=== PATIENT | male | born 1980 | race Caucasian/White ===

== ENCOUNTER 2019-04-09 16:24 | Emergency (ER) | payer OTHER ==
--- NOTE | 2019-04-09 17:06 | PDOC ---
Rapid Medical Evaluation Time Seen by Provider: 04/09/19 16:32 Medical Evaluation: 04/09/19 17:03 I have performed a brief in-person evaluation of this patient. The patient presents with a chief complaint of: CP/SOB regardless of position but worse w/ sitting x 2 weeks. No diaphoresis, n/v, leg pain/swelling. No prior episode. No sig pmhx, non-smoker Pertinent physical exam findings:Stable w/ clear chest/lungs I have ordered the following:ekg/cxr/labs The patient will proceed to the ED for further evaluation Discharge Disposition - Diagnosis Chest pain Qualifiers: Chest pain type: chest pain on breathing Qualified Code(s): R07.1 - Chest pain on breathing - Referrals - Patient Instructions - Post Discharge Activity
[2019-04-09 17:07] VITALS: BMI 50.6
[2019-04-09 18:41] LABS: BASO % 0.8 % (0-2.0); EOS % 1.7 % (0-4.5); HEMATOCRIT 46.9 % (35.4-49); HEMOGLOBIN 16.4 GM/dL (11.7-16.9); LYMPH % 28.7 % (8-40); MCH 30.8 pg (25.7-33.7); MCHC 34.9 g/dl (32.0-35.9); MEAN CELL VOLUME 88.1 fl (80-96); MEAN PLT VOLUME 9.7 fl (7.5-11.1); MONO % 4.4 % (3.8-10.2); NEUT % 64.4 % (42.8-82.8); PLATELET COUNT 189 K/MM3 (134-434); RBC 5.32 M/mm3 (4.00-5.60); RDW 13.4 % (11.9-15.9); WHITE BLOOD COUNT 6.8 K/mm3 (4.0-10.0)
--- NOTE | 2019-04-09 18:42 | PDOC ---
Documentation entered by Abdulkadir Rajan SCRIBE, acting as scribe for Eden Martinez MD. Eden Martinez MD: This documentation has been prepared by the Satinder chu Joel, SCRIBE, under my direction and personally reviewed by me in its entirety. I confirm that the documentation accurately reflects all work, treatment, procedures, and medical decision making performed by me. Attending Attestation - Resident Resident Name: Lazarus Suh - ED Attending Attestation I have performed the following: I have examined & evaluated the patient, The case was reviewed & discussed with the resident, I agree w/resident's findings & plan, Exceptions are as noted - HPI HPI: 04/09/19 18:46 The patient is a 39 year old male with no significant PMH who presents to the emergency department for evaluation of chest pain over the past 2 weeks. He describes his chest pain as a diffuse tightness with tingling down his left arm that is worse when sitting, with associated nausea and lightheadedness. He also notes an episode of palpitations while sitting at work last week. He denies shortness of breath. He comes in today due to being concerned after his friend has a recent [place]. The patient denies headache and dizziness. Denies fever, chills, nausea, vomit, diarrhea and constipation. Denies dysuria, frequency, urgency and hematuria. Allergies: NKA Past surgical history: None reported. Social history: No reported cigarette, alcohol, or drug use. - Physicial Exam PE: 04/09/19 19:21 GENERAL: Awake, alert, and fully oriented, in no acute distress HEAD: No signs of trauma EYES: PERRLA, EOMI, sclera anicteric, conjunctiva clear ENT: Auricles normal inspection, hearing grossly normal, nares patent, oropharynx clear without exudates. Moist mucosa NECK: Normal ROM, supple, no lymphadenopathy, JVD, or masses LUNGS: Breath sounds equal, clear to auscultation bilaterally. No wheezes, and no crackles HEART: Regular rate and rhythm, normal S1 and S2, no murmurs, rubs or gallops ABDOMEN: Soft, nontender, normoactive bowel sounds. No guarding, no rebound. No masses EXTREMITIES: Normal range of motion, no edema. No clubbing or cyanosis. No cords, erythema, or tenderness NEUROLOGICAL: Cranial nerves II through XII grossly intact. Normal speech, normal gait SKIN: Warm, Dry, normal turgor, no rashes or lesions noted. - Medical Decision Making 04/09/19 18:38 pt recently had a friend from an [place] and he is concerned because for the psat 2 weeks he has experienced some left sided chest pain and left arm tingling PMH denies PSH denies Social history: no tobacco use,no etoh,single Family history no family history of early cardiac demise 04/09/19 19:29 negative cardiac workup with a negative troponin and EKG normal sinus rhythm with no evidence of any ischemiaor arrhythmia patient has had these intermittent symptoms over last 2 weeks and is being referred to a health coach for further workup
--- NOTE | 2019-04-09 18:44 | PDOC ---
History of Present Illness - General Chief Complaint: Chest Pain Stated Complaint: SOB/DIZZINESS Time Seen by Provider: 04/09/19 16:32 History Source: Patient Exam Limitations: No Limitations - History of Present Illness Initial Comments: 04/09/19 18:43 Robinson Benjamin is an otherwise healthy 39M presenting with chest pain. Patient reports 2 weeks of chest tightness that radiates down the left arm, chest tightness persists while in ED. Tightness worsens when patient is sitting , alleviates when standing or lying supine. Has had palpitations about a week ago, unprovoked, was working in office. Intermittent nausea and lightheadedness. Reports sweating only while eating, denies abd pain or heartburn. Of note, patient was working 2 jobs, one of which was nights, and was getting little sleep and not seeing family. Family reports to him that he has been short of breath after simple activities, but pt does not notice. Previous MD dx him with mild anxiety, no tx prescribed. Recent of friend of similar age from heart attack, prompted eval today. Past History - Past Medical History Allergies/Adverse Reactions: Allergies Allergy/AdvReac Type Severity Reaction Status Date / Time No Known Allergies Allergy Verified 04/09/19 17:04 COPD: No - Immunization History Immunization Up to Date: Yes - Suicide/Smoking/Psychosocial Hx Smoking History: Never smoked Information on smoking cessation initiated: No Hx Alcohol Use: No Drug/Substance Use Hx: No Review of Systems - Review of Systems Able to Perform ROS?: Yes Is the patient limited Bulgarian proficient: No Constitutional: No: Chills, Fever, Night Sweats, Weakness HEENTM: No: Blurred Vision, Hearing Loss, Throat Pain, Difficulty Swallowing Respiratory: Yes: See HPI, Shortness of Breath, SOB with Exertion, SOB at Rest. No: Cough, Orthopnea, Wheezing Cardiac (ROS): Yes: See HPI, Chest Pain, Lightheadedness, Palpitations (1 week ago), Chest Tightness. No: Edema, Syncope ABD/GI: Yes: Nausea. No: Abdominal Distended, Constipated, Diarrhea, Vomiting, Abdominal cramping : No: Burning, Dysuria, Discharge, Frequency, Flank Pain Musculoskeletal: No: Muscle Pain, Muscle Weakness Integumentary: No: Bruising, Erythema, Flushing Neurological: No: Headache, Numbness, Paresthesia, Weakness, Unsteady Gait Endocrine: Yes: Excessive Sweating (when eating) Hematologic/Lymphatic: No: See HPI *Physical Exam - Vital Signs Last Vital Signs Temp Pulse Resp BP Pulse Ox 97.8 F 70 16 127/77 98 04/09/19 17:04 04/09/19 17:04 04/09/19 17:04 04/09/19 17:04 04/09/19 17:04 - Physical Exam General Appearance: Yes: Nourished, Appropriately Dressed. No: Apparent Distress HEENT: positive: EOMI, MAURISIO, Normal Voice, Symmetrical, Hearing Grossly Normal. negative: Scleral Icterus (R), Scleral Icterus (L) Neck: positive: Trachea midline, Rigid, Supple. negative: Tender, Lymphadenopathy (R), Lymphadenopathy (L) Respiratory/Chest: positive: Chest Tender (TTP point under L nipple, non- radiating), Lungs Clear, Normal Breath Sounds, Respiratory Distress. negative: Accessory Muscle Use, Crackles, Rales, Rhonchi Cardiovascular: positive: Regular Rhythm, Regular Rate. negative: Edema, Murmur , Gallop/S3, Gallop/S4 Gastrointestinal/Abdominal: positive: Normal Bowel Sounds, Flat. negative: Tender, Soft, Organomegaly Musculoskeletal: positive: Normal Inspection Extremity: positive: Normal Capillary Refill, Normal Inspection, Normal Range of Motion. negative: Tender (No signs of injury to L arm, 5/5 strength, sensation intact to LT, grossly normal) Integumentary: positive: Normal Color, Dry, Warm Neurologic: positive: Fully Oriented, Normal Mood/Affect, Normal Response, Motor Strength 5/5 ED Treatment Course - LABORATORY CBC & Chemistry Diagram: 04/09/19 17:55 04/09/19 17:55 Medical Decision Making - Medical Decision Making 04/09/19 19:19 Robinson Benjamin is an otherwise healthy 39M presenting with chest pain. Given patient has no significant PMH, no cardiac history, no family history of cardiac disease, and is presenting with intermittent chest pain and palpitations , concern high for arrhythmia vs. MT vs. anxiety vs. musculoskeletal injury vs. costochondritis. Evaluation via CBC, CMP, cardiac profile, ECG. Trops returned negative, ECG grossly normal, CXR clear. Given chest pain to palpation, likely musculoskeletal, however, L arm tingling and palpitations is concerning for cardiac disease. Given pt is otherwise healthy, stable at this time, and has good medical literacy, will refer to PCP clinic and staffing rn. Explained importance of follow-up for cardiac eval to patient, will discharge home. *DC/Admit/Observation/Transfer Diagnosis at time of Disposition: Chest pain Qualifiers: Chest pain type: chest pain on breathing Qualified Code(s): R07.1 - Chest pain on breathing - Discharge Dispostion Disposition: HOME Condition at time of disposition: Good Decision to Admit order: No - Referrals Referrals: Romeo Danielle MD [Staff Physician] - Allen Britt MD [Staff Physician] - - Patient Instructions Printed Discharge Instructions: DI for Chest Pain, DI for Atypical Chest Pain Additional Instructions: Today you were evaluated for chest pain. As you mentioned, we were concerned for a heart attack. We evaluated your heart rhythm with an EKG, and checked your blood for problems with your electrolytes and signs of heart damage, and we did not find any abnormalities. We also performed a chest x-ray to look for heart or bone problems, and none were found. Your chest pain is likely in your muscles, or even your body's reaction to stress such as your work or the loss of a loved one. As we discussed, there is not an immediate, life-threatening problem that we have to fix right now. However, we are still concerned about your arm pain and palpitations, which could be signs of a heart problem that we cannot detect in the emergency room, or be a problem with your thyroid releasing too much hormones that excite your heart. Please follow-up with the doctors we referred you to, or if your insurance covers a doctor closer to you, please see a staffing rn of your choice in the next week to check out your chest pain. If you continue to have worsening chest pain, shortness of breath, headache, nausea , vomiting, or any other concerning symptoms, return to an emergency room immediately. - Post Discharge Activity
[2019-04-09] MEDS ORDERED: ASPIRIN COATED 81 MG TABLET.EC PO SCH (18:45)
[2019-04-09 18:54] VITALS: BP 124/79; PULSE 73; TEMP 98.6
[2019-04-09 19:01] LABS: ALBUMIN 4.2 g/dl (3.4-5.0); BILIRUBIN,TOTAL 0.4 mg/dL (0.2-1); BLOOD UREA NITROGEN 18.7 mg/dL (7-18); CALCIUM 9.2 mg/dL (8.5-10.1); CREATININE 1.2 mg/dL (0.55-1.3); TOT PROT 7.9 g/dl (6.4-8.2)
[2019-04-09] MEDS ORDERED: ASPIRIN 81 MG CHEWABLE TABLETS ONE (19:14)
--- NOTE | 2019-04-10 10:32 | EKG ---
Test Reason : Blood Pressure : / mmHG Vent. Rate : 062 BPM Atrial Rate : 062 BPM P-R Int : 178 ms QRS Dur : 114 ms QT Int : 408 ms P-R-T Axes : 050 069 042 degrees QTc Int : 414 ms NORMAL SINUS RHYTHM INCOMPLETE LEFT BUNDLE BRANCH BLOCK BORDERLINE ECG NO PREVIOUS ECGS AVAILABLE Confirmed by DEANNA JONES, CESILIA ([id number]) on 04/10/2019 10:31:57 AM Referred By: Confirmed By:CESILIA HUERTA MD
== END 2019-04-09 19:59 | disposition home or self-care (01) ==
LOC: JER 16:24
DX: R07.1 Chest pain on breathing (principal)
CPT/HCPCS: 36415; 71046-TC-FY; 80053; 82550; 84484; 85025; 93005; 93010; 99283-25

== ENCOUNTER 2019-10-08 08:47 | Emergency (ER) | payer OTHER ==
[2019-10-08 09:24] VITALS: BMI 28.2
[2019-10-08] MEDS ORDERED: MAG HYDROX/AL HYDROX/SIMETH 30 ML UNIT-DOSE CUP PO ONE (10:15)
[2019-10-08] MEDS ORDERED: MAG HYDROX/AL HYDROX/SIMETH 30 ML UNIT-DOSE CUP ONE (10:27)
[2019-10-08 10:43] LABS: BASO % 0.4 % (0-2.0); EOS % 1.4 % (0-4.5); HEMATOCRIT 45.8 % (35.4-49); HEMOGLOBIN 16.1 GM/dL (11.7-16.9); LYMPH % 19.2 % (8-40); MCH 30.9 pg (25.7-33.7); MCHC 35.2 g/dl (32.0-35.9); MEAN CELL VOLUME 87.5 fl (80-96); MEAN PLT VOLUME 8.7 fl (7.5-11.1); MONO % 7.1 % (3.8-10.2); NEUT % 71.9 % (42.8-82.8); PLATELET COUNT 160 K/MM3 (134-434); RBC 5.23 M/mm3 (4.00-5.60); RDW 13.5 % (11.9-15.9); WHITE BLOOD COUNT 5.1 K/mm3 (4.0-10.0)
--- NOTE | 2019-10-08 10:43 | PDOC ---
History of Present Illness - General Chief Complaint: Pain Stated Complaint: ABD. PAIN Time Seen by Provider: 10/08/19 09:49 History Source: Patient Exam Limitations: Clinical Condition - History of Present Illness Initial Comments: 10/08/19 10:37 Patient with no significant past medical history present with complaint of sudden onset of cramping left upper quadrant abdominal pain with tingling sensation going up left side of chest which lasted for 5 minutes and has been intermittent since yesterday. Patient reported had symptoms yesterday and went to [facility] emergency room and left yesterday due to waiting for too long. Reported that it was done for him in the emergency room yesterday. Patient reported feeling the symptom again this morning which lasted for 5 minutes and has resolved. Reported no symptoms now. Reported intermittent feeling of bubbling sensation in the abdomen. Denies nausea, vomiting, chest pain, shortness of breath, dizziness, fever, chills or sweats. Patient has not taken anything for symptoms. Patient reported last bowel movement this morning which was small and soft and also had a bowel movement yesterday which was small. Patient reported has not been eating much due to abdominal pain Is this a multiple visit Asthma Patient?: No Timing/Duration: 24 hours Past History - Past Medical History Allergies/Adverse Reactions: Allergies Allergy/AdvReac Type Severity Reaction Status Date / Time No Known Allergies Allergy Verified 10/08/19 09:16 Home Medications: Ambulatory Orders Mag Hydrox/Aluminum Hyd/Simeth [Maalox Advanced Suspension] 30 ml PO Q8H PRN # 200 ml 10/08/19 COPD: No - Immunization History Immunization Up to Date: Yes - Psycho Social/Smoking Cessation Hx Smoking History: Never smoked Information on smoking cessation initiated: No Hx Alcohol Use: No Drug/Substance Use Hx: No Review of Systems - Review of Systems Able to Perform ROS?: Yes Is the patient limited Qatari proficient: No Constitutional: No: Chills, Fever, Malaise HEENTM: No: Symptoms Reported, See HPI, Eye Pain, Blurred Vision, Tearing, Recent change in vision, Double Vision, Cataracts, Ear Pain, Ocular Prothesis, Ear Discharge, Nose Pain, Nose Congestion, Tinnitus, Nose Bleeding, Hearing Loss , Throat Pain, Throat Swelling, Mouth Pain, Dental Problems, Difficulty Swallowing, Mouth Swelling, Other Respiratory: No: Symptoms reported, See HPI, Cough, Orthopnea, Shortness of Breath, SOB with Exertion, SOB at Rest, Stridor, Wheezing, Productive cough, Hemoptysis, Other Cardiac (ROS): No: Symptoms Reported, See HPI, Chest Pain, Edema, Irregular Heart Rate, Lightheadedness, Palpitations, Syncope, Chest Tightness, Other ABD/GI: Yes: Symptoms Reported, See HPI, Poor Appetite, Abdominal cramping (LUQ intermittent pain). No: Abd. Pain w/ defecation, Blood Streaked Bowels, Constipated, Diarrhea, Difficulty Swallowing, Nausea, Poor Fluid Intake, Rectal Bleeding, Vomiting, Tarry Stools : No: Burning, Dysuria, Frequency, Urgency Musculoskeletal: No: Symptoms Reported Integumentary: No: Symptoms Reported Neurological: No: Symptoms reported, Headache, Numbness, Weakness, Dizziness All Other Systems: Reviewed and Negative *Physical Exam - Vital Signs Last Vital Signs Temp Pulse Resp BP Pulse Ox 98.7 F 94 H 17 145/87 97 10/08/19 09:16 10/08/19 09:16 10/08/19 09:16 10/08/19 09:16 10/08/19 09:16 - Physical Exam 10/08/19 10:42 GENERAL: Well developed, well nourished. Awake and alert. No acute distress. HEENT: Normocephalic, atraumatic. PERRLA, EOMI. No conjunctival pallor. Sclera are non-icteric. Moist mucous membranes. Oropharynx is clear. NECK: Supple. Full ROM. CARDIOVASCULAR: Regular rate and rhythm. No murmurs, rubs, or gallops. Distal pulses are 2+ and symmetric. PULMONARY: No evidence of respiratory distress. Lungs clear to auscultation bilaterally. No wheezing, rales or rhonchi. ABDOMINAL: Soft. Non-tender. Non-distended. No rebound or guarding. No organomegaly. Mildly hyperactive bowel sounds. MUSCULOSKELETAL Normal range of motion at all joints. SKIN: Warm and dry. Normal capillary refill. No rashes. No cyanosis. NEUROLOGICAL: Alert, awake, appropriate. Gait is normal without ataxia. PSYCHIATRIC: Cooperative. Good eye contact. Appropriate mood General Appearance: Yes: Nourished, Appropriately Dressed. No: Apparent Distress ED Treatment Course - LABORATORY CBC & Chemistry Diagram: 10/08/19 10:20 10/08/19 10:20 - Medications Given in the ED: ED Medications Discontinued Medications Generic Name Dose Route Start Last Admin Trade Name Pravin PRN Reason Stop Dose Admin Al Hydroxide/Mg Hydroxide 30 ml 10/08/19 10:15 10/08/19 10:29 Mylanta Oral Suspension - PO 10/08/19 10:16 30 ml ONCE ONE Administration Medical Decision Making - Medical Decision Making 10/08/19 10:40 Patient with no significant past medical history present with complaint of sudden onset of cramping left upper quadrant abdominal pain with tingling sensation going up left side of chest which lasted for 5 minutes and has been intermittent since yesterday. Patient reported had symptoms yesterday and went to [facility] emergency room and left yesterday due to waiting for too long. Reported that it was done for him in the emergency room yesterday. Patient reported feeling the symptom again this morning which lasted for 5 minutes and has resolved. Reported no symptoms now. Reported intermittent feeling of bubbling sensation in the abdomen. Denies nausea, vomiting, chest pain, shortness of breath, dizziness, fever, chills or sweats. Patient has not taken anything for symptoms. Patient reported last bowel movement this morning which was small and soft and also had a bowel movement yesterday which was small. Patient reported has not been eating much due to abdominal pain Clinical exam unremarkable with no abdominal tenderness on exam. Mild increased bowel sounds diffusely. Normal cardio exam and lungs clear to auscultation bilateral. EKG done from triage shows normal sinus rhythm. Patient is symptomatic now clinically stable. Symptoms likely caused by gas pain versus less likely cardiogenic pain. CBC, CMP, lipase and cardiac profile lab ordered. Maalox 30 mL p.o. ordered for gas. Treat based on lab results. Will do KUB abdominal x- ray to rule out fecal retention 10/08/19 12:05 KUB abdominal x-ray shows some gas otherwise unremarkable x-ray. CBC and chemistry lab unremarkable. Cardiac profile within normal limits. Patient is symptomatic now with symptoms likely caused by gas pain. Patient stable for discharge on MiraLAX as needed for gas pain with advised to increase fluid intake and follow-up with GI if symptoms persist Discharge - Discharge Information Problems reviewed: Yes Clinical Impression/Diagnosis: Abdominal bloating with cramps Condition: Improved Disposition: HOME - Admission No - Additional Discharge Information Prescriptions: Mag Hydrox/Aluminum Hyd/Simeth [Maalox Advanced Suspension] 30 ml PO Q8H PRN # 200 ml PRN Reason: abdominal discomfort - Follow up/Referral - Patient Discharge Instructions Patient Printed Discharge Instructions: Intestinal Gas (Alternative Therapy) Additional Instructions: Your blood work was normal. Your abdominal x-ray shows some gas otherwise normal x-ray. Your symptoms likely caused by gas pain. Take prescribed medication as needed for pain. Follow-up with referred GI doctor if no improvement in 3 days - Post Discharge Activity
[2019-10-08 11:46] LABS: ALBUMIN 4.1 g/dl (3.4-5.0); ALK PHOS 85 U/L (45-117); ANION GAP 5 MMOL/L (8-16); BILIRUBIN,TOTAL 1.1 mg/dL (0.2-1); CALCIUM 8.3 mg/dL (8.5-10.1); CHLORIDE 104 mmol/L (98-107); CO2 27 mmol/L (21-32); GLUCOSE,RANDOM 95 mg/dL (74-106); LIPASE 83 U/L (73-393); POTASSIUM 3.9 mmol/L (3.5-5.1); SGOT/AST 26 U/L (15-37); SGPT/ALT 60 U/L (13-61); SODIUM 136 mmol/L (136-145); TOT PROT 7.8 g/dl (6.4-8.2)
[2019-10-08 12:07] VITALS: BP 116/74; PULSE 91; TEMP 97.6
--- NOTE | 2019-10-08 12:35 | EKG ---
Test Reason : Blood Pressure : / mmHG Vent. Rate : 080 BPM Atrial Rate : 080 BPM P-R Int : 188 ms QRS Dur : 102 ms QT Int : 378 ms P-R-T Axes : 053 067 037 degrees QTc Int : 435 ms NORMAL SINUS RHYTHM POSSIBLE LEFT ATRIAL ENLARGEMENT BORDERLINE ECG Confirmed by MD IGOR, ALISA ([id number]) on 10/08/2019 12:34:59 PM Referred By: Confirmed By:ALISA COSTA MD
== END 2019-10-08 12:08 | disposition home or self-care (01) ==
LOC: JER 08:47
DX: R14.0 Abdominal distension (gaseous) (principal)
CPT/HCPCS: 36415; 74018-TC-FY; 80053; 82550; 83690; 84443; 84484; 85025; 93005; 93010; 99283-25